=== PATIENT | male | born 1970 | race African-American/Black ===

== ENCOUNTER 2018-11-19 13:50 | Emergency (ER) | payer OTHER ==
[2018-11-19 14:04] VITALS: BP 118/83; PULSE 96; TEMP 98.4; BMI 31.0
--- NOTE | 2018-11-19 14:25 | PDOC ---
History of Present Illness - General Chief Complaint: Injury Stated Complaint: HIT IN HEAD YESTERDAY, HEADACHE Time Seen by Provider: 11/19/18 13:52 - History of Present Illness Initial Comments: Mr Jose Luis Price is a 48yo man with no relevant medical history who presents to the ED today after being struck in the head yesterday. 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 One of the students was playing with the cord when it snapped back and struck him in the right side of his head. He is not sure exactly where it struck. He was able to complete the rest of his day without any difficutly. He denies any LOC, amnesia, seizure, n/v, weakness, numbness/tingling, or other neurological symptoms. He had a mild headache yesterday and took acetaminophen 1000g with some improvement. When Mr Price woke up today, he again noted a headache. He took acetaminophen again at around 4am and 10am. However, due to still having a headache this afternoon and per online information he was concerned that he might have a concussion and presented for evaluation. Past History - Past Medical History Allergies/Adverse Reactions: Allergies Allergy/AdvReac Type Severity Reaction Status Date / Time No Known Allergies Allergy Verified 11/19/18 13:51 Home Medications: Ambulatory Orders Acetaminophen [Tylenol -] 1,000 mg PO PRN PRN 11/19/18 Atorvastatin Ca [Lipitor] 20 mg PO HS 11/19/18 Naproxen 500 mg PO BID PRN #14 tablet 11/19/18 COPD: No Hypercholesterolemia: Yes - Suicide/Smoking/Psychosocial Hx Smoking Status: No Smoking History: Never smoked Have you smoked in the past 12 months: No Number of Cigarettes Smoked Daily: 0 Information on smoking cessation initiated: No Hx Alcohol Use: No Drug/Substance Use Hx: No Review of Systems - Review of Systems Comments:: General: No fevers, no chills, no weight or appetite change, no malaise HEENT: No changes in vision, no changes in hearing, no congestion, no sore throat CV: No chest pain, no palpitations, no LE edema Pulm: No SOB, no cough, no wheezing GI: No nausea or vomiting, no change in bowel habits, no melena : No frequency, no urgency, no dysuria Musc: No back pain, no joint swelling, no recent injury Skin: No rash, no lesions, no erythema Endo: No excessive thirst, no heat/cold intolerance Heme: No unusual bruising or bleeding, no swollen glands Neuro: No syncope, no numbness/tingling, no focal weakness Vasc: No claudication Psych: No recent change in mood, no SI or HI *Physical Exam - Vital Signs Last Vital Signs Temp Pulse Resp BP Pulse Ox 98.4 F 96 H 20 118/83 100 11/19/18 13:50 11/19/18 13:50 11/19/18 13:50 11/19/18 13:50 11/19/18 13:50 - Physical Exam Comments: General: Comfortable, no acute distress HEENT: PERRL, EOMI, visual ulloa intact, MMM, voice normal, normal neck ROM, no LAD Cards: RRR, no murmur appreciated Pulm: Comfortable on room air, clear to auscultation bilaterally Abd: Soft, nontender, nondistended Ext: Atraumatic. No LE edema. ROM intact. Strength 5/5 and equal bilaterally Vasc: Extremities WWP. Palpable radial and pedal pulses bilaterally Skin: Normal color, no rashes or lesions Neuro: A&Ox3, CN intact, normal speech, motor/sensory grossly intact and symmetric Psych: Mood appropriate to situation Moderate Sedation - Procedure Monitoring Vital Signs: Procedure Monitoring Vital Signs Temperature 98.4 F 11/19/18 13:50 Pulse Rate 96 H 11/19/18 13:50 Respiratory Rate 20 11/19/18 13:50 Blood Pressure 118/83 11/19/18 13:50 O2 Sat by Pulse Oximetry (%) 100 11/19/18 13:50 Medical Decision Making - Medical Decision Making 11/19/18 14:19 Mr Dee Amaya is a 48yo man with no relevant medical history who presents with a headache after being struck in the right parietal head with a cord yesterday. He had some improvement with acetaminophen but was concerned due to the persistent headache. - Reassuring history w/o LOC, neurologic symptoms, AMS, n/v - No visible injury on exam. Neurologically intact. - Score [address] [place] [address] head trauma rules - no LOC, no amnesia, not on blood thinners, no seizure, no n/v, not under age 14 or over 65 - Ibuprofen for pain control - Plan to discharge home with instructions for home care and return precautions. Discussed with Dr Romero. Estella Tellez PGY1 *DC/Admit/Observation/Transfer Diagnosis at time of Disposition: Headache, Closed head injury - Discharge Dispostion Disposition: HOME Condition at time of disposition: Stable Decision to Admit order: No - Prescriptions Prescriptions: Naproxen 500 mg PO BID PRN #14 tablet PRN Reason: Pain - Referrals - Patient Instructions Printed Discharge Instructions: DI for Closed Head Injury Additional Instructions: Take naproxen as needed for pain twice a day. Do not take advil, ibuprofen, motrin, aleve or any other NSAID if you are taking naproxen. Follow up with your primary care doctor in 1-2 days Return to the emergency department if you have any new, worsening, or concerning symptoms such as nausea, vomiting, weakness, numbness, worsening headache, blurry vision or dizziness - Post Discharge Activity
--- NOTE | 2018-11-19 14:30 | PDOC ---
Attending Attestation - Resident Resident Name: Estella Tellez - ED Attending Attestation I have performed the following: I have examined & evaluated the patient, The case was reviewed & discussed with the resident, I agree w/resident's findings & plan, Exceptions are as noted - HPI HPI: 11/19/18 14:29 48yo M hx HL presents to the ED with 24 hours of right sided headache. REports headache began yesterday afternoon after his head was hit by an electrical plug. 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 No LOC or fall. States headache began a few hours later gradually. Headache is pressure like sensation and resolved completely with tylenol yesterday evening. No associated photophobia or phonophobia. When the headache gradually returned today, he decided to come to the ED for evaluation. He reports getting headaches from time to time, but those are usually bi temporal. Denies N/V, blurry vision, focal weakness/numbness, stiff neck, neck or back pain. - Physicial Exam PE: 11/19/18 15:32 GENERAL: Awake, alert, and fully oriented, in no acute distress HEAD: No signs of trauma, no bruising EYES: PERRLA, EOMI, sclera anicteric, conjunctiva clear ENT: Auricles normal inspection, hearing grossly normal, nares patent, oropharynx clear without exudates. Moist mucosa NECK: Normal ROM, supple, no lymphadenopathy, JVD, or masses LUNGS: Breath sounds equal, clear to auscultation bilaterally. No wheezes, and no crackles HEART: Regular rate and rhythm, normal S1 and S2, no murmurs, rubs or gallops ABDOMEN: Soft, nontender, normoactive bowel sounds. No guarding, no rebound. No masses EXTREMITIES: Normal range of motion, no edema. No cords, erythema, or tenderness NEUROLOGICAL: Normal speech, cranial nerves intact, negative pronator drift, 5/ 5 strength in all 4 extremities, normal sensation to light touch in all 4 extremities, normal cerebellar exam, normal gait, normal tone SKIN: Warm, Dry, normal turgor, no rashes or lesions noted. - Medical Decision Making 11/19/18 15:33 48yo M presents to the ED with headache since yesterday. Vitals wnl. Exam wnl, pt is completely neuro intact. In light of low mechanism head injury, well appearing pt, normal exam, will hold off on CTH imaging as unlikely to be positive for ICH. Headache is likely tension headache. Pt given motrin, pain well controlled, requests DC home. I discussed the physical exam findings, ancillary test results and final diagnoses with the patient. I answered all of the patient's questions. The patient was satisfied with the care received and felt comfortable with the discharge plan and treatment plan. The patient will call their primary care physician within 24 hours to arrange follow-up and will return to the Emergency Department with any new, persistent or worsening symptoms. *DC/Admit/Observation/Transfer Diagnosis at time of Disposition: Headache, Closed head injury - Discharge Dispostion Disposition: HOME Condition at time of disposition: Improved Decision to Admit order: No - Prescriptions Prescriptions: Naproxen 500 mg PO BID PRN #14 tablet PRN Reason: Pain - Referrals - Patient Instructions Printed Discharge Instructions: DI for Closed Head Injury Additional Instructions: Take naproxen as needed for pain twice a day. Do not take advil, ibuprofen, motrin, aleve or any other NSAID if you are taking naproxen. Follow up with your primary care doctor in 1-2 days Return to the emergency department if you have any new, worsening, or concerning symptoms such as nausea, vomiting, weakness, numbness, worsening headache, blurry vision or dizziness - Post Discharge Activity - Attestations Physician Attestion: 11/19/18 14:44 I, Dr. Roberto Romero MD, attest that this document has been prepared under my direction and personally reviewed by me in its entirety. I further attest, that it accurately reflects all work, treatment, procedures and medical decision -making performed by me.
[2018-11-19] MEDS ORDERED: IBUPROFEN 400 MG TABLET (FP) PO ONE ×2 (14:33→14:37)
== END 2018-11-19 14:48 | disposition home or self-care (01) ==
LOC: FER 13:50
DX: S09.90XA Unspecified injury of head, initial encounter (principal); R51 Headache; W22.8XXA Striking against or struck by other objects, initial encounter; Y93.89 Activity, other specified; Y92.219 Unspecified school as the place of occurrence of the external cause; Y99.0 Civilian activity done for income or pay; E78.00 Pure hypercholesterolemia, unspecified
CPT/HCPCS: 99281-25

== ENCOUNTER 2019-03-29 06:32 | Emergency (ER) | payer OTHER | END 2019-03-29 06:58 | disposition home or self-care (01) | LOC: FER 06:32 ==

== ENCOUNTER 2019-08-21 18:38 | Emergency (ER) | payer OTHER ==
[2019-08-21 18:54] VITALS: BP 123/81; PULSE 65; TEMP 97.7; BMI 30.5
--- NOTE | 2019-08-21 18:56 | PDOC ---
Attending Attestation - Resident Resident Name: Jos Ramos - ED Attending Attestation I have performed the following: I have examined & evaluated the patient, The case was reviewed & discussed with the resident, I agree w/resident's findings & plan, Exceptions are as noted - HPI HPI: 08/21/19 19:21 Persistent wrist pain for 1 month after zip lining. Temporary relief with anti- inflammatories. Not evaluated previously. - Physicial Exam PE: 08/21/19 19:21 No swelling or deformity. Mild tenderness over the volar and dorsal wrist, ulnar aspect. No snuffbox tenderness. No distal radius tenderness. Pulses full. No sensory or motor deficits - Medical Decision Making 08/21/19 19:22 Assessment: Chronic sprain right wrist. Plan: X-ray is negative. Immobilization, anti-inflammatories, and orthopedic referral for further evaluation and possibly physical therapy.
--- NOTE | 2019-08-21 19:09 | PDOC ---
History of Present Illness - General Chief Complaint: Pain Stated Complaint: RIGHT WRIST PAIN Time Seen by Provider: 08/21/19 18:55 - History of Present Illness Initial Comments: 08/21/19 19:04 48 yo M PMH HLD p/w R wrist pain. Patient states that he was ziplining a month ago and twisted his wrist, with acute onset of pain and swelling. Improvement over time, further alleviated with ice and ibuprofen/acetaminophen. Here today because he was busy earlier. No other issues on ROS. Specifically denies loss of sensation or weakness. Past History - Past Medical History Allergies/Adverse Reactions: Allergies Allergy/AdvReac Type Severity Reaction Status Date / Time No Known Allergies Allergy Verified 08/21/19 18:39 Home Medications: Ambulatory Orders Atorvastatin Ca [Lipitor] 20 mg PO HS 11/19/18 COPD: No Hypercholesterolemia: Yes - Psycho Social/Smoking Cessation Hx Smoking Status: No Smoking History: Never smoked Have you smoked in the past 12 months: No Number of Cigarettes Smoked Daily: 0 Information on smoking cessation initiated: No Hx Alcohol Use: No Drug/Substance Use Hx: No Review of Systems - Review of Systems Able to Perform ROS?: Yes Constitutional: No: Chills, Diaphoresis, Fever HEENTM: No: Recent change in vision, Hearing Loss, Difficulty Swallowing Respiratory: No: Cough, Shortness of Breath Cardiac (ROS): No: Chest Pain ABD/GI: No: Constipated, Diarrhea, Nausea, Vomiting : No: Burning, Hematuria Musculoskeletal: Yes: Joint Pain (R wrist). No: Back Pain, Joint Swelling, Muscle Weakness Neurological: No: Headache, Numbness, Paresthesia, Tingling, Weakness *Physical Exam - Vital Signs Last Vital Signs Temp Pulse Resp BP Pulse Ox 97.7 F 65 18 123/81 100 08/21/19 18:39 08/21/19 18:39 08/21/19 18:39 08/21/19 18:39 08/21/19 18:39 - Physical Exam Comments: 08/21/19 19:10 Gen: well-developed, well-nourished, NAD Neuro: AAOX4, CN II-XII intact, FTN intact, EOMI, PERRLA, 5/5 strength, SILT HEENT: atraumatic, normocephalic Neck: trachea midline, supple CV: regular rate, regular rhythm, no murmurs, rubs, or gallops Pulm: CTA b/l, no wheezing Abd: soft, non-distended, non-tender MSK: full ROM, intact pulses Wrist: no gross deformity or edema, pain with supination Extr: no edema, no deformities Skin: warm, dry Medical Decision Making - Medical Decision Making 08/21/19 19:11 Wrist sprain. Very low suspicion for fracture. Will get confirmatory X ray. Dc home, tell patient to take ibuprofen and apply ice as needed. 08/21/19 19:17 X ray without acute fracture. Discharge - Discharge Information Problems reviewed: Yes Clinical Impression/Diagnosis: Wrist pain, right Condition: Stable Disposition: HOME - Follow up/Referral - Patient Discharge Instructions Patient Printed Discharge Instructions: DI for Wrist Pain Additional Instructions: You were seen with right wrist pain for the past month. Your X ray did not show any issues. This is likely to be a wrist sprain. Take ibuprofen and apply ice as needed. Wear your wrist splint as needed, especially at night. Follow up with your primary care doctor within 1 week. Return to the ED if you develop worsening symptoms such as weakness or loss of sensation. If your pain persists , you may need to see a specialist. - Post Discharge Activity
== END 2019-08-21 19:34 | disposition home or self-care (01) ==
LOC: FER 18:38
DX: M25.531 Pain in right wrist (principal); E78.5 Hyperlipidemia, unspecified
CPT/HCPCS: 73110-TC-RT-FY; 99282-25

== ENCOUNTER 2020-10-24 11:03 | Emergency (ER) | payer OTHER ==
[2020-10-24 11:14] VITALS: BP 141/86; PULSE 92; TEMP 99; BMI 30.9
[2020-10-24] MEDS ORDERED: ACETAMINOPHEN 500 MG TABLET (FP) PO ONE (11:51)
[2020-10-24] MEDS ORDERED: LIDOCAINE 5% TOPICAL PATCH TP ONE (11:52)
[2020-10-24] MEDS ORDERED: ACETAMINOPHEN 325 MG TABLET (FP) ONE (11:55)
[2020-10-24] MEDS ORDERED: LIDOCAINE 5% TOPICAL PATCH ONE (11:56)
[2020-10-24] MEDS ORDERED: LIDOCAINE PATCH REMOVAL MC SCH (22:00)
== END 2020-10-24 12:06 | disposition home or self-care (01) ==
LOC: MERGE 11:03 → FER 11:03
DX: M54.2 Cervicalgia (principal)
CPT/HCPCS: 99283-25

== ENCOUNTER 2022-08-04 18:44 | Emergency (ER) | payer BC ==
[2022-08-04 19:09] VITALS: BP 157/100; PULSE 80; RESP 16; TEMP 98.1; BMI 28.7
[2022-08-04 20:17] LABS: HEMATOCRIT 39.8 % (35.4-49); HEMOGLOBIN 14.3 G/dL (11.7-16.9); MCH 32.3 pg (25.7-33.7); MEAN CELL VOLUME 89.7 fl (80-96); MEAN PLT VOLUME 8.1 fl (7.5-11.1); PLATELET COUNT 279.3 10^3/uL (134-434); RBC 4.44 10^6/uL (4.00-5.60); RDW 14.3 % (11.9-15.9); WHITE BLOOD COUNT 6.9 10^3/uL (4.0-10.8)
[2022-08-04 20:19] LABS: ALBUMIN 4.2 g/dl (3.4-5.0); BILIRUBIN,TOTAL 0.6 mg/dl (0.2-1); CALCIUM 9.8 mg/dl (8.5-10); CREATININE 1.2 mg/dl (0.55-1.3); TOT PROT 7.4 g/dl (6.4-8.2)
[2022-08-04 20:25] LABS: INR 1.01 (0.83-1.09); PROTHROMBIN TIME (PATIENT) 11.6 SEC (9.7-13.0)
== END 2022-08-04 22:20 | disposition home or self-care (01) ==
LOC: FER 18:44
DX: R07.89 Other chest pain (principal)
CPT/HCPCS: 36415; 71045-TC-FY; 80053; 84484; 85027; 85610; 93005; 99284-25